=== PATIENT | female | born 1980 | race Caucasian/White ===

== ENCOUNTER 2016-07-18 19:24 | Emergency (ER) | payer MEDICAID, OTHER ==
[2016-07-18 19:39] VITALS: O2SAT 96
[2016-07-18] MEDS ORDERED: Lidocaine/Epi 1% 1:100000 20 ML IJ STA (21:47)
[2016-07-18] MEDS ORDERED: Lidocaine 2% Inj (20ml) ONE (21:50)
[2016-07-18] MEDS ORDERED: Bacitracin 500 Units/gm Oint Foilpak UD ONE (22:04)
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
[2016-07-18 22:35] VITALS: BP 143/103; PULSE 84; RESP 20; TEMP 98
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
== END 2016-07-18 22:31 | disposition home or self-care (01) ==
LOC: C.ER 19:24
DX: S51.811A Laceration without foreign body of right forearm, initial encounter (principal); W25.XXXA Contact with sharp glass, initial encounter; Y93.89 Activity, other specified; Y92.9 Unspecified place or not applicable; F10.10 Alcohol abuse, uncomplicated; Y90.9 Presence of alcohol in blood, level not specified

== ENCOUNTER 2016-07-28 13:25 | Emergency (ER) | payer OTHER ==
[2016-07-28 13:53] VITALS: BP 116/81; PULSE 90; RESP 15; TEMP 98.8; O2SAT 99
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
[2016-07-28] MEDS ORDERED: Bacitracin 500 Units/gm Oint Foilpak UD ONE (14:16)
== END 2016-07-28 14:40 | disposition home or self-care (01) ==
LOC: C.ER 13:25
DX: Z76.0 Encounter for issue of repeat prescription (principal); Z48.02 Encounter for removal of sutures